=== PATIENT | female | born 1990 | race Caucasian/White ===

== ENCOUNTER → 2023-03-17 06:02 | Day surgery (SDC) | payer OTHER, SELFPAY ==
[2023-03-17] VITALS (12 sets, daily range): BP systolic 94–123; BP diastolic 56–81; PULSE 72–96; RESP 11–17; TEMP 36.2–36.6; O2SAT 97–100; BMI 24.2
--- NOTE | 2023-03-17 | PATH_ITS ---
[facility] Accession Number: [id number] No. of containers..01 Tissue . 01 Material submitted: . product of conception - PRODUCTS OF CONCEPTION . 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 Fragments of decidua and gestational endometrium. MRV 03/29/2023 1931 Local . 01 Comment: The chorionic villi show hydropic change with some scalloping and inclusions, as well as early cistern formation. An *immunostain to p57 is performed (block A1), with the control stained appropriately, and is positive on the cytotrophoblast and stromal cells of the villi. This result rules against a complete hydatidiform molar gestation; however, a partial molar gestation remains in the differential, as does hydropic degeneration. Therefore, the specimen will be submitted to [facility] ([place]) for ploidy analysis with those results and the final diagnosis reported as an addendum. . *This test was developed and its performance characteristics determined by [facility]. It has not been cleared or approved by the U.S. Food and Drug Administration. The FDA has determined that such clearance or approval is not necessary. This test is used for clinical purposes. It should not be regarded as investigational or for research. . 01 Electronically signed: . Joslyn Cohen MD, Pathologist NPI- [id number] . 01 Gross description: . The specimen is received in formalin, labeled with the patient's name, , and products of conception, and consists of multiple webster, spongy soft tissue fragments admixed with hemorrhagic material aggregating to 5.8 x 5.6 x 1.3 cm. No tissue is identified. [employer] [place] sections are submitted in cassettes A1-A2. ([id number]) /FRR 03/21/2023 1234 Local . 01 Pathologist provided ICD-10: O02.1 . 01 CPT . 754690, D20306 Specimen Comment: A courtesy copy of this report has been sent to [phone] Performed at: 01 [facility] [address] [place] [address], [place], [place] [id number] MD Moe Olivarez MD Phone: [phone]
[2023-03-17] MEDS: ACETAMINOPHEN 325 MG TABLET 975 MG PO (07:20)
[2023-03-17] MEDS: LACTATED RINGERS 1,000 ML 42 ML IV (07:40)
--- NOTE | 2023-03-17 07:50 | P.HPOB_ITS ---
History of Present Illness History of Present Illness Reason for admission: missed Narrative: Yandy Barnett is a 32 year old female 1 para 0 at 9 weeks' gestation by last menstrual period with a missed at 5 weeks 6 days. Patient is here for a suction D&C. Unknown blood type. [facility] Social History household members: spouse Smoking Status: Never smoker alcohol intake: former Meds Home Medications and Allergies Home Medications Medication Instructions Recorded Confirmed Type No Known Home Medications 03/17/23 03/17/23 History Allergies Allergy/AdvReac Type Severity Reaction Status Date / Time tuna oil AdvReac Intermediate Hives Verified 03/17/23 06:54 Exam Vital Signs (past 8 hours): - 03/17/23 07:22 Temperature 97.7 F Pulse Rate 81 Respiratory Rate 17 Blood Pressure 123/81 Pulse Oximetry 98 Oxygen Delivery Method Room Air Oxygen Delivery Method Room Air Narrative Exam Narrative: HEENT: No thyromegaly, no anterior cervical or supraclavicular lymphadenopathy. Lungs:Clear to auscultation bilaterally, no wheezes. Cardiovascular: Regular rate and rhythm, no murmurs, rubs, or gallops. Abdomen: No scars. No hepatosplenomegaly. No masses palpable. External genitalia: Normal Vagina: Normal Cervix: Normal Bimanual exam: 6 Week size anteverted uterus. Mobile. Extremities: No edema Assessment & Plan Assessment & Plan narrative: Assessment: 32-year-old 1 para 0 with a missed at 5 weeks 6 days Unknown blood type Plan: Type and screen, RhoGAM if negative Suction D&C The risks, benefits, and alternatives to the procedure were explained to the patient. The risks including bleeding, infection, and uterine perforation. She understands these risks and agrees to proceed. A full par Q was held and c onsent form was signed.
--- NOTE | 2023-03-17 07:52 | PM.PREOP ---
Pre-operative Note Interval Note History & Physical reviewed/Exam performed by Physician: Yes Changes to H&P: No H&P completed within 30 days and has changed as indicated here:: 03/17/23
[2023-03-17 08:14] LABS: Hematocrit 34.1 % (36-46); Mean Corpuscular HGB Conc 35.3 % (30-36); Mean Corpuscular Hemoglobin 30.9 PG (26-34); Mean Corpuscular Volume 87.6 fL (80-100); Platelet Count 266 X10^3/uL (150-400); Red Cell Distribution Width 13.3 % (11.6-14.8); White Blood Cell Count 6.4 X10^3/uL (4.5-11.0)
--- NOTE | 2023-03-17 08:30 | PM.GYNOP.1 ---
Operative Date/Time/Diagnoses Date of procedure: 03/17/23 Time of procedure: 08:30 Pre-op diagnosis: Missed at 5 weeks 6 days Post-op diagnosis: same Procedure & Clinicians Procedure: Procedures Operation Date: 03/17/23 07:45 <No data on this case meets the specified criteria> Indications: 32-year-old with a missed at 5 weeks 6 days. Surgeon: Lilli East Anesthesia Type: General ( LMA) Operative Notes Findings: 6 week size anteverted uterus large amount of products of conception Closure Type: not applicable Specimen(s): products of conception Estimated blood loss (mL): 75 Blood products transfused: none Procedure in detail: After informed consent was obtained, the patient was taken to the operating room where she was placed in the dorsal supine position. After adequate LMA general anesthesia was achieved, she was placed in the dorsal lithotomy position, and prepped and draped in the usual sterile fashion. A time-out was performed. A bivalve speculum was placed into the vagina and the anterior lip of the cervix was grasped with a single-tooth tenaculum. Cervical os was sequentially dilated until the # 6 curved plastic curette could pass easily into the endometrial cavity. Several passes with suction revealed a large amount of fluid and tissue. The curette was removed. Sharp curettage was performed yielding a moderate amount of tissue. Several more passes with suction revealed tissue on the first pass and blood only on the second and third pass. The instruments were removed from the uterus. The single-tooth tenaculum was removed from the anterior lip of the cervix. The bivalve speculum was removed from the vagina. Sponge, lap, and instrument counts were correct x2. The patient tolerated the procedure well, and was taken to PACU in stable condition. Complications: none Post-operative Condition: stable Disposition: PACU Plan for aftercare: Home after recovery
--- NOTE | 2023-03-17 08:40 | SUR.OPER ---
Lithotomy on padded OR bed, head on pillow, arms secured on padded arm boards at <90 degrees abduction. Legs secured in padded yellow fins stirrups.
[2023-03-17] MEDS: ONDANSETRON 4 MG/2 ML INJ IV (08:43)
--- NOTE | 2023-03-17 10:05 | SUR.PHASEII ---
0930 - Ambulates easily to bathroom. Type and screen results O+. Dr East's MA will forward result.
== END | disposition home or self-care (01) ==
PROVIDERS: Referring Provider Obstetrics & Gynecology; Visit Provider Obstetrics & Gynecology
PROC: (CPT 58120; principal; 2023-03-17 07:45)
DX: O02.1 Missed abortion (principal); Z3A.01 Less than 8 weeks gestation of pregnancy
CPT/HCPCS: 59820; 85027; 86850; 86900; 86901; J1100; J1885; J2250; J2405; J2704; J3010